=== PATIENT | male | born 1945 | race Caucasian/White ===

== ENCOUNTER 2019-12-05 08:54 | Outpatient (REF) | payer MEDICARE, OTHER, SELFPAY ==
[2019-12-05 10:31] LABS: MANUAL DIFF FLAG NO
[2019-12-05 10:35] LABS: Basophils Absolute Auto 0.1 X10*3/uL (0.0-0.2); Basophils Percent Auto 0.5 % (0-2); Eosinophils Percent Auto 0.4 % (0-4); Hematocrit 48.1 % (42-52); Hemoglobin 15.6 g/dl (14.0-18.0); Imm Gran Abs Auto 0.03 X10*3/uL (0.00-0.03); Imm Gran Pct Auto 0.3 % (0.0-0.4); Lymphocytes Absolute Auto 4.4 X10*3/uL (1.2-4.9); Lymphocytes Percent Auto 48.3 % (20-40); Mean Corpuscular HGB Conc 32.4 g/dl (31.0-36.0); Mean Corpuscular Hemoglobin 27.3 pg (27.0-33.0); Mean Corpuscular Volume 84.1 fL (80-98); Mean Platelet Volume 10.1 fL (9.4-12.4); Monocytes Absolute Auto 0.6 X10*3/uL (0.1-1.2); Monocytes Percent Auto 6.4 % (2-11); Neutrophils Percent Auto 44.1 % (45-73); Platelet Count 304 X10*3/uL (160-400); Red Blood Count 5.72 X10*6/uL (4.60-5.80); Red Cell Distribution Width 14.3 % (11.0-16.0); White Blood Count 9.2 X10*3/uL (4.8-10.8)
[2019-12-05 11:05] LABS: Alanine Aminotransferase 37 U/L (0-40); Albumin Level 5.1 g/dL (3.5-5.0); Alkaline Phosphatase 70 U/L (39-117); Anion Gap 14 (12-20); Aspartate Amino Transferase 26 U/L (5-37); Bilirubin Direct 0.2 mg/dL (0.0-0.5); Bilirubin Total 0.6 mg/dL (0.0-1.0); Blood Urea Nitrogen 18 mg/dL (9-16); Carbon Dioxide 29 mmol/L (22-29); Chloride 97 mmol/L (96-108); Cholesterol 177 mg/dL; Estimated Glomerular Filt Rate > 60; Glucose Random 121 mg/dL (60-115); HDL Cholesterol 60 mg/dL; LDL Cholesterol Calculated 94 mg/dl; Potassium 4.2 mmol/l (3.3-5.1); Sodium 136 mmol/L (135-145); Total Protein 7.7 g/dL (6.5-8.0); Triglycerides 119 mg/dL
[2019-12-05 11:25] LABS: Estimated Average Glucose 120 mg/dL; Hemoglobin A1c % 5.8 %
[2019-12-05 11:27] LABS: Prostate Specific Antigen 0.05 ng/mL (<0.05-4.0); Vitamin D 25-OH Total 31.3 ng/mL (>30)
== END 2019-12-05 08:55 | disposition home or self-care (01) ==
LOC: HO.LAB 08:54
PROVIDERS: PCP Internal Medicine; Visit Provider Internal Medicine
DX: E55.9 Vitamin D deficiency, unspecified (principal); E78.5 Hyperlipidemia, unspecified; I10 Essential (primary) hypertension
CPT/HCPCS: 36415; 80048; 80061; 80076; 82306; 83036; 84153; 85025

== ENCOUNTER 2020-05-13 07:55 | Outpatient (REF) | payer MEDICARE, OTHER, SELFPAY ==
[2020-05-13 09:08] LABS: Alanine Aminotransferase 43 U/L (0-40); Albumin Level 4.8 g/dL (3.5-5.0); Alkaline Phosphatase 70 U/L (39-117); Anion Gap 13 (12-20); Aspartate Amino Transferase 26 U/L (5-37); Bilirubin Direct 0.2 mg/dL (0.0-0.5); Bilirubin Total 0.6 mg/dL (0.0-1.0); Blood Urea Nitrogen 14 mg/dL (9-16); Calcium 9.7 mg/dL (8.4-10.2); Carbon Dioxide 30 mmol/L (22-29); Chloride 101 mmol/L (96-108); Cholesterol 153 mg/dL; Estimated Glomerular Filt Rate > 60; Glucose Random 122 mg/dL (60-115); HDL Cholesterol 52 mg/dL; LDL Cholesterol Calculated 83 mg/dl; Potassium 5.2 mmol/L (3.3-5.1); Sodium 139 mmol/L (135-145); Total Protein 7.5 g/dL (6.5-8.0); Triglycerides 90 mg/dL
== END 2020-05-13 07:56 | disposition home or self-care (01) ==
LOC: HO.LAB 07:55
PROVIDERS: PCP Internal Medicine; Visit Provider Internal Medicine
DX: I10 Essential (primary) hypertension (principal)
CPT/HCPCS: 36415; 80048; 80061; 80076

== ENCOUNTER 2021-04-21 18:10 | Emergency (ER) | payer OTHER, MEDICARE, SELFPAY ==
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
[2021-04-21 19:08] VITALS: BP 176/97; PULSE 79; RESP 16; TEMP 36.7; O2SAT 97; BMI 29.7
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
[2021-04-21 21:44] VITALS: BP 168/98; PULSE 86; RESP 18; TEMP 36.8; O2SAT 97
== END 2021-04-21 23:30 | disposition home or self-care (01) ==
PROVIDERS: Emergency Provider Emergency Medicine; PCP Internal Medicine
DX: S13.4XXA Sprain of ligaments of cervical spine, initial encounter (principal); V43.52XA Car driver injured in collision with other type car in traffic accident, initial encounter; Y93.89 Activity, other specified; Y92.415 Exit ramp or entrance ramp of street or highway as the place of occurrence of the external cause; Y99.9 Unspecified external cause status
CPT/HCPCS: 72040; 99283; 99284

== ENCOUNTER 2022-03-03 08:05 | Outpatient (REF) | payer MEDICARE, SELFPAY ==
--- NOTE | ~2022-03-03 | XR_ITS ---
EXAMINATION: XR SHOULDER, RIGHT CLINICAL INFORMATION: Acute pain on the right shoulder. COMPARISON: None. TECHNIQUE: Four views of the right shoulder. FINDINGS: No acute fractures or subluxation. Moderate degenerative changes of the acromioclavicular and glenohumeral joints. Decreased acromiohumeral interval. No abnormal soft tissue calcifications. The visualized portion of the right-sided ribs and right lung are within normal limits. XR/XR shoulder RT min 2V IMPRESSION: 1. No acute fractures or subluxation. 2. 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 3. Decrease acromiohumeral interval suggesting rotator cuff disease/tear.
== END 2022-03-03 08:06 | disposition home or self-care (01) ==
LOC: HO.XRAY 08:05
PROVIDERS: PCP Internal Medicine; Visit Provider Internal Medicine
DX: M25.511 Pain in right shoulder (principal)
CPT/HCPCS: 73030

== ENCOUNTER 2022-03-16 13:55 | Outpatient (REF) | payer MEDICARE, OTHER, SELFPAY ==
--- NOTE | ~2022-03-16 | US_ITS ---
EXAMINATION: ULTRASOUND SOFT TISSUES RIGHT UPPER ARM CLINICAL INFORMATION: Upper lateral right arm pain and swelling. COMPARISON: None TECHNIQUE: Using a linear array transducer with grayscale and color modalities, ultrasound examination is performed of the right upper extremity. FINDINGS: The cutaneous, subcutaneous, muscular and fascial planes are unremarkable. No mass or fluid collection is seen. There is no lymphadenopathy. No foreign body is seen. US/US extremity nonvascular IMPRESSION: Unremarkable examination.
== END 2022-03-16 13:56 | disposition home or self-care (01) ==
LOC: HO.US 13:55
PROVIDERS: Visit Provider Internal Medicine
DX: M25.511 Pain in right shoulder (principal)
CPT/HCPCS: 76882